=== PATIENT | male | born 1980 | race Caucasian/White ===

== ENCOUNTER 2018-07-25 05:19 | Day surgery (SDC) | payer OTHER ==
[2018-07-25] MEDS ORDERED: ULTRACET PO (09:23)
[2018-07-25] MEDS ORDERED: KEFLEX500 MG PO (09:23)
[2018-07-25] MEDS ORDERED: SURFAK240 M1 PO (09:23)
[2018-07-25] MEDS ORDERED: ZANTAC300 MG PO (09:23)
== END 2018-07-25 14:45 | disposition home or self-care (01) ==
LOC: EDBD → CIR.AMB 05:19
DX: K40.90 Unilateral inguinal hernia, without obstruction or gangrene, not specified as recurrent (principal)